=== PATIENT | male | born 1950 | race Caucasian/White ===

== ENCOUNTER 2022-04-16 10:00 | Day surgery (SDC) | payer MEDICARE, BC ==
[2022-04-16] VITALS (7 sets, daily range): BP systolic 146–171; BP diastolic 90–98
[~2022-04-16] VITALS: Ht 175.3 cm; Wt 70.7 kg
[~2022-04-16 10:00] MED LIST: ASPI81TA53 PO; ATOR20TA66 PO; FOLI1TAB27 PO; TICA90TA PO
[2022-04-16] MEDS ORDERED: diphenhydrAMINE 25mg capsule PO PRN (10:25)
[2022-04-16] MEDS ORDERED: normal saline 1,000 ML IV SCH (10:25)
[2022-04-16] MEDS ORDERED: LORazepam 0.5 MG tablet PO PRN (10:25)
[2022-04-16] MEDS ORDERED: nitroGLYCERIN-Tridil 50MG/D5W 250 ML IV ONE (11:52)
[2022-04-16] MEDS ORDERED: midazolam 1 mg/ML 2ml injection ONE (11:52)
[2022-04-16] MEDS ORDERED: verapamil 2.5 mg/ml inj IV ONE (11:52)
[2022-04-16] MEDS ORDERED: fentaNYL/PF 50MCG/1 ML 2ML syringe ONE (11:53)
[2022-04-16] MEDS ORDERED: LIDOcaine 1% 30ml preserv. free vial ONE ×2 (11:53→13:17)
[2022-04-16] MEDS ORDERED: heparin 1,000unit/ml 10ml vial 10 ML ONE ×2 (11:53→13:49)
[2022-04-16] MEDS ORDERED: iohexol 350MG/ML 100ml bottle IV ONE ×3 (11:53→13:57)
[2022-04-16] MEDS ORDERED: LIDOcaine 1% (10mg/ml) 2ml vial ONE (11:57)
[2022-04-16] MEDS ORDERED: ATOR-2 PO (13:07)
[2022-04-16] MEDS ORDERED: VITAMIN D (13:07)
[2022-04-16] MEDS ORDERED: CARV-49 PO (13:11)
[2022-04-16] MEDS ORDERED: TICA90TA2 PO (13:11)
[2022-04-16] MEDS ORDERED: ASPI-1265 PO (13:11)
[2022-04-16] MEDS ORDERED: FOLIC ACID (13:12)
[2022-04-16] MEDS ORDERED: aspirin 325mg tablet ONE (13:53)
[2022-04-16] MEDS ORDERED: ticagrelor 90mg tablet ONE (13:54)
== END 2022-04-16 16:35 | disposition home or self-care (01) ==
LOC: SSTAY O 10:00
PROVIDERS: ATTEND Student in an Organized Health Care Education/Training Program
DX: I25.119 Atherosclerotic heart disease of native coronary artery with unspecified angina pectoris (principal); I25.2 Old myocardial infarction; I12.9 Hypertensive chronic kidney disease with stage 1 through stage 4 chronic kidney disease, or unspecified chronic kidney disease; N18.9 Chronic kidney disease, unspecified; Z79.899 Other long term (current) drug therapy; Z98.890 Other specified postprocedural states; Z79.82 Long term (current) use of aspirin; Z88.8 Allergy status to other drugs, medicaments and biological substances
CPT/HCPCS: 93005; C1725; C1751; C1760; C1769; C1874; C1894; C9600; J1644; J2250; J3010; J3490; J7030; Q0163; Q9967; 92920; 99152; 99153; A4620; A5120; A6258